=== PATIENT | female | born 1950 | race Caucasian/White ===

== ENCOUNTER → 2016-11-23 | Day surgery (SDC) | payer OTHER ==
[~2016-11-23] MED LIST: AMIODARONE HCL200 MG PO; AMLODIPINE BESY10 MG PO; ATORVASTATIN CA10 MG PO; BENAZEPRIL HCL40 MG PO; DYAZIDE 37.5/251 CAP PO; ELIQUIS5 MG PO; FERROUS SULFAT325 MG PO; FLOMAX0.4 M1 PO; FUROSEMIDE40 MG PO; HYDROCODON-ACE1 EAC7 PO; INSULIN; LOPRESSOR PO; NEURONTIN100 MG PO; NORCO; POTASSIUM CHLO20 ME1 PO; PRAVASTATIN SOD40 MG PO; PROTONIX PO; TRAMADOL HCL50 M1 PO; VOLTAREN75 MG PO
--- NOTE | ~2016-11-23 | OR ---
Unit #: [id number] #: [id number] Patient: SARAH CAMP [id number] [address] [place], [place] [address] [id number] O MR#: [id number] NAME: SARAH CAMP ROOM: Date of Procedure: 11/23/2016 Admission Date: 11/23/2016 Surgeon: Michael Campbell M.D. : 1950 Attending Physician: Michael Campbell M.D. Primary Care Physician: Reynaldo Cifuentes M.D. OPERATIVE REPORT PREOPERATIVE DIAGNOSES The patient has presented for colorectal cancer screening. She also has occult gastrointestinal blood loss as well as iron-deficiency anemia and an upper endoscopy and a colonoscopy is being done today. PROCEDURES PERFORMED Upper gastrointestinal endoscopy and biopsy as well as colonoscopy up to cecum with good prep and visualization. POSTOPERATIVE DIAGNOSES For upper endoscopy: The patient had mild prepyloric antral erosive gastritis. This was in the form of linear erythema and erythematous streaks in the antral area. A biopsy was obtained from the antrum for CLOtest. In addition, biopsies were also obtained from the deep descending duodenal folds to look for any evidence of partial villous atrophy or celiac disease. The examination was otherwise normal up to third part of duodenum. For colonoscopy: Small internal hemorrhoids. Otherwise, normal examination up to cecum. The quality of the prep was good. No polyps or diverticula were seen. RECOMMENDATIONS The patient will be followed up in the office in the next few weeks along with results of CLOtest and biopsies taken today. SEDATION USED MAC. DESCRIPTION OF PROCEDURE Following detailed explanation of potential risks and complications of upper endoscopy and a colonoscopy, namely perforation, bleeding, and complications related to sedation, the patient was brought to GI lab and laid in the left lateral decubitus position. Lubricated tip of the Olympus video upper endoscope was passed through the bite block into the proximal esophagus under direct vision. The entire esophageal mucosa was examined and appeared normal. Z-line was nicely demarcated, there being no esophagitis or hiatus hernia. The scope was then advanced into the gastric cavity and the latter was insufflated. Mucosa of the fundus, body, and antrum was examined. The patient was noted to have mild prepyloric antral erythema erosions indicating antral gastritis. Pylorus was intubated with visualization of the normal duodenal bulb and second Unit #: [id number] #: [id number] Patient: SARAH CAMP and third part of the duodenum. Biopsies were obtained from the deep descending duodenal folds to look for any evidence of partial villous atrophy or celiac disease. Upon withdrawal and retroflexion, incisura, cardia, and greater curve was examined and biopsy was obtained from the antrum for CLOtest. The scope was then withdrawn in the distal esophagus. The entire esophageal mucosa was examined all the way up to pharynx. No additional findings were noted. The examination table was then turned by 180 degrees and the patient positioned for a colonoscopy. A digital rectal examination was performed, which was normal. Lubricated tip of the Olympus video colonoscope was inserted through the anus and advanced under direct vision. The scope was advanced past rectosigmoid into descending colon. No diverticula were noticed in this area. The scope tip was then navigated all the way up to cecum with visualization of the ileocecal valve and the appendiceal orifice. Preparation was excellent with good visualization and photodocumentation was obtained. Successive segments of the colonic mucosa were examined upon withdrawal and appeared unremarkable. There being no polyps, mass lesions, AVMs, or diverticula. The patient did have small internal hemorrhoids seen at the anal verge on retroflexion. The scope was then withdrawn and the patient returned to recovery area. She tolerated the procedure without any postprocedure complications. Dictated by... Ca Tan/michelle TD: 11/23/2016 11:10 JOB #: [id number] OPERATIVE REPORT Page 1 of 1 X Michael Campbell MD X PROCEDURE OPERATIVE NOTE
== END | disposition home or self-care (01) ==
LOC: COPS 07:59
DX: K29.80 Duodenitis without bleeding (principal); K29.00 Acute gastritis without bleeding; D50.9 Iron deficiency anemia, unspecified; K64.8 Other hemorrhoids; E11.9 Type 2 diabetes mellitus without complications; I48.91 Unspecified atrial fibrillation; I10 Essential (primary) hypertension; K21.9 Gastro-esophageal reflux disease without esophagitis; Z87.19 Personal history of other diseases of the digestive system; Z79.01 Long term (current) use of anticoagulants; Z79.4 Long term (current) use of insulin; Z79.899 Other long term (current) drug therapy; Z90.49 Acquired absence of other specified parts of digestive tract; Z96.651 Presence of right artificial knee joint
CPT/HCPCS: 87077; 88305

== ENCOUNTER → 2017-01-30 | Outpatient (CLI) | payer OTHER ==
--- NOTE | ~2017-01-30 | ST ---
Unit #: [id number] #: [id number] Patient: SARAH CAMP [id number] [address] [place], [place] [address] [id number] O MR#: [id number] NAME: SARAH CAMP : 1950 SEX: F STUDY DATE/TIME: 01/30/2017 UNIT: [facility] ROOM: STUDY DESCRIPTION: Stress test Attending Physician: Pippa Castañeda M.D. Referring Physician: Pippa Castañeda M.D. Primary Care Physician: Reynaldo Cifuentes M.D. CARDIOLOGY REPORT REASON FOR EXAM Pre-op cardiac clearance. PROCEDURE Baseline EKG shows sinus bradycardia, rate of 58 beats per minute. Next, 0.4 mg of Lexiscan was injected per protocol, followed by Cardiolite. During the testing period, the patient did complain of "feeling funny," as well as some shortness of breath and lightheadedness. The patient's symptoms resolved in the recovery period. She denied any complaints of chest tightness or chest pressure. There were no ST or T wave changes noted during the infusion. There was no ectopy. The test was stopped secondary to protocol completion. FINDINGS 1. Negative EKG portion of Lexiscan Cardiolite. 2. No ST-T wave changes suggestive of ischemia. 3. Complaints of shortness of breath and "feeling weird," as well as some lightheadedness during the testing period. Denied any complaints of chest pressure or tightness. 4. No arrhythmias were noted. 5. Please correlate with nuclear imaging. Dictated by... Chayo Shaw A.P.R.N. for Pippa Castañeda M.D. LMW/db TD: 01/30/2017 11:47 JOB #: [id number] CARDIOLOGY REPORT Page 1 of 1 X Chayo Shaw APRN CARDIOLOGY REPORT
--- NOTE | ~2017-01-30 | TH ---
Unit #: [id number] #: [id number] Patient: SARAH CAMP [id number] [address] [address] [id number] O MR#: [id number] NAME: SARAH CAMP : 1950 SEX: F STUDY DATE/TIME: 01/30/2017 UNIT: [facility] ROOM: STUDY DESCRIPTION: Attending Physician: Pippa Castañeda M.D. Referring Physician: Pippa Castañeda M.D. Primary Care Physician: Reynaldo Cifuentes M.D. CARDIOLOGY REPORT EXAM Lexiscan Cardiolite stress test, nuclear portion. PROCEDURE Using technetium 99m labeled Cardiolite, rest and stress SPECT images were obtained. Multiple SPECT images were obtained in various views including horizontal and vertical long axis and short axis views of the left ventricle. Images were obtained by gated SPECT method. The patient was administered 11.92 mCi of Cardiolite at rest. Patient was administered 35.1 mCi of Cardiolite after Lexiscan infusion was completed. On the stress images, there was normal perfusion noted. The rest images showed normal perfusion. Comparing rest and stress images, there is no stress-induced ischemia noted. The left ventricular ejection fraction is calculated to be 62%. There is no focal wall motion abnormality seen. CONCLUSION 1. No stress-induced ischemia noted. 2. The left ventricular ejection fraction is calculated to be 62%. 3. There is no focal wall motion abnormality seen. 4. Normal Lexiscan Cardiolite stress test. Dictated by... Ca Martinez TD: 01/30/2017 16:39 JOB #: [id number] CARDIOLOGY REPORT Page 1 of 1 X Pippa Castañeda MD <ELECTRONICALLY SIGNED> 03/14/17 1524 CARDIOLOGY REPORT
== END | disposition home or self-care (01) ==
LOC: CNUC 08:38
DX: Z01.810 Encounter for preprocedural cardiovascular examination (principal); I48.0 Paroxysmal atrial fibrillation; I10 Essential (primary) hypertension
CPT/HCPCS: 78452; 93017; A9500; J2785

== ENCOUNTER → 2017-02-06 | Outpatient (CLI) | payer OTHER ==
--- NOTE | ~2017-02-06 | CR63 ---
[facility] A Service of [facility] & [facility] RADIOLOGY TEXT RESULTS PATIENT: SARAH CAMP LOCATION: [facility] : [birth year] UNIT #: [id number] AGE: [address]: Bryn Gerber MD SEX: F ORDER DR: [id number] [facility] [address] [place], [place] [address] [id number] O MR#: [id number] Acc #: [id number] NAME: SARAH CAMP : 1950 SEX: F STUDY DATE/TIME: 02/06/2017 9:02 UNIT: [facility] ROOM: STUDY DESCRIPTION: CR Chest 2 View Attending Physician: Bryn Gerber M.D. Referring Physician: Bryn Gerber M.D. Ordering Physician: Bryn Gerber M.D. Primary Care Physician: Reynaldo Cifuentes M.D. MEDICAL IMAGING REPORT This report is preliminary unless electronic signature is present EXAM Chest, 02/06/2017 HISTORY 66-year-old woman preop revision/removal right total knee arthroplasty. Infection. History of diabetes and hypertension. COMPARISON Chest, 07/05/2016 FINDINGS Two-view chest demonstrates mild stable cardiac enlargement. Hilar structures and mediastinal contours are preserved. Bilateral lungs are expanded and clear. IMPRESSION Stable cardiomegaly. No acute chest finding. Dictated by... Luis A Garcia M.D. THIS IS AN ELECTRONICALLY VERIFIED REPORT Luis A Garcia M.D. at 02/06/2017 12:55 PM Rubi TD: 02/06/2017 11:53 JOB #: [id number] MEDICAL IMAGING REPORT Page 1 of 1 COPY
--- NOTE | ~2017-02-06 | CO ---
Unit #: [id number] #: [id number] Patient: SARAH CAMP [id number] [address] [place], [place] [address] [id number] O MR#: [id number] NAME: SARAH CAMP ROOM: Age: 66 Sex: F Admission Date: 02/06/2017 : 1950 Attending Physician: Bryn Gerber M.D. Primary Care Physician: Reynaldo Cifuentes M.D. Consultation Date: 02/06/2017 CONSULTATION REPORT REASON FOR CONSULTATION Preop medical evaluation prior to removal of right total knee arthroplasty for right knee infection, scheduled by Dr. eGrber for 02/15/17. HISTORY OF PRESENT ILLNESS The patient is a 66-year-old female who presents to pre-procedural screening for the reasons indicated above. She complains of warmth, erythema, tenderness of the right knee joint and right anterior hamilton. Denies fever, chills. She was evaluated by Dr. Gerber approximately two weeks ago, per her report. According to the patient, the erythema, tenderness and warmth have increased since that visit. She denies upper chest, upper back, arm, neck, jaw pain or pressure. Denies dyspnea on exertion, shortness of air, PND, orthopnea. She does have obstructive sleep apnea and is compliant with CPAP when asleep. Denies dizziness but reports brief lightheadedness when getting up in the morning which resolved spontaneously with slow position changes. She denies palpitations. She denies history of myocardial infarction, CHF, CVA, TIA, kidney disease. She is an insulin dependent diabetic with associated peripheral neuropathy. She has no other complaints at the time of this interview today. She has been evaluated by Dr. Gerber and scheduled for the above reference procedure. PAST MEDICAL HISTORY 1. Osteoarthritis. 2. Right knee infection, status post right total knee arthroplasty performed at [facility] in 2013. Status post completion of 6-12 weeks of antibiotic therapy prescribed in June of 2016. She has not received antibiotic since that time. 3. Morbid obesity, BMI 40. 4. 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 5. Obstructive sleep apnea, compliant with CPAP when asleep. 6. Hypertension. 7. Hiatal hernia. 8. History of chronic low back pain, not established with pain management. 9. History of atrial fibrillation, on Eliquis therapy. 10. History of iron deficient anemia, on prescription strength iron supplement. 11. Status post panendoscopy with biopsy here at [place] on November 23, 2016. Upper endoscopy revealed mild prepyloric antral erosive gastritis. Biopsy from the antrum was negative for urease. Biopsies from the deep descending duodenal folds were collected and were negative for malignancy or dysplasia per anatomical pathology report dated 12/01/16. Unit #: [id number] #: [id number] Patient: SARAH CAMP 12. Possible history of sepsis associated with right knee infection in June 2016. 13. History of urinary incontinence. PAST SURGICAL HISTORY 1. Right total knee arthroplasty. 2. Cholecystectomy. The patient denies a personal and family history of complications to anesthesia. ALLERGIES Denies latex allergy. Denies medication allergies. CURRENT MEDICATIONS 1. Amiodarone HCL. Will need to clarify dose, one tab p.o. daily. 2. Eliquis 5 mg p.o. b.i.d. 3. Protonix 40 mg p.o. daily. 4. Potassium chloride 20 mEq p.o. daily. 5. Furosemide 40 mg p.o. daily. 6. Atorvastatin calcium 10 mg p.o. at bedtime. 7. Flomax 0.4 mg p.o. at bedtime. 8. Neurontin 100 mg p.o. t.i.d. 9. Lopressor 25 mg p.o. daily. 10. Hydrocodone/Acet 5/325 mg tab, one p.o. q.i.d. 11. Ferrous sulfate prescription strength, one tab p.o. b.i.d. Will need to confirm dose. SOCIAL HISTORY Denies tobacco use and ETOH use and illicit drug use. FAMILY HISTORY Mother - coronary artery disease and myocardial infarction. Sister - lung cancer. REVIEW OF SYSTEMS Denies fever, chills, nausea, vomiting, diarrhea. Right knee and right anterior hamilton erythema, tenderness, warmth and edema. A 10-point review of systems was conducted and otherwise negative except as indicated under History of Present Illness above. PHYSICAL EXAMINATION GENERAL: 66-year-old female awake, alert, in no acute distress. VITAL SIGNS: Temperature 99.1, heart rate 71, respiratory rate 16, blood pressure 159/70. Oxygen saturation 97% on room air. HEENT: Atraumatic, normocephalic. Sclerae anicteric. No discharge from eyes, ears or nares. LYMPHS: No preauricular, postauricular, tonsillar, submental, anterior, posterior, cervical adenopathy. ENDOCRINE: No thyromegaly, thyroid nodules or tenderness. RESPIRATORY: Clear to auscultation in all marcus bilaterally without wheezes, rhonchi or rales. CARDIOVASCULAR: S1, S2. Regular rate and rhythm with grade 2/6 systolic murmur best heard at second intercostal space left sternal border. GI: Bowel sounds positive x4. Soft, nontender, nondistended. EXTREMITIES: Right lower extremity 2+ edema with warmth, erythema over right knee joint with extension of erythema to mid pretibial area on the right. Unit #: [id number] #: [id number] Patient: SARAH CAMP NORFOLK MUSCULOSKELETAL: Strength 5/5 all extremities bilaterally, flexion/extension with exception of right lower extremity guarded secondary to pain with flexion and extension. NEURO: Alert and oriented x3. Speech clear. Follows instructions during examination. DIAGNOSTIC STUDIES LABORATORY: WBC 8.4, hemoglobin 8.2, hematocrit 26.2, platelets 478,000, sed rate 113. UA negative with neither microscopic nor culture indicated. Sodium 136, potassium 4.0, chloride 100, CO2 26, glucose 145, BUN 28, creatinine 0.8, calcium 9.3, AST 13, ALT 10, alkaline phos 102, bili total 0.7, total protein 7.9, albumin 3.0, PT 11.4, INR 1.1, CRP 6.4. Hemoglobin A1c pending at this time. MRSA nasal swab report pending at this time. IMAGIN-view chest x-ray report pending at this time. CARDIOVASCULAR: Lexiscan Cardiolite stress test nuclear portion report, date of study 01/30/17. Conclusion - no stress-induced ischemia. LVEF calculated to be 62%. No focal wall motion abnormality. Normal Lexiscan Cardiolite stress test. EKG portion of test - negative EKG portion of Lexiscan Cardiolite. IMPRESSION The patient is a 66-year-old female who presents to preprocedural screening for: 1. Right knee infection, status post right total knee arthroplasty. The patient's [place] Revised Cardiac Risk Index is equal to 0.4 to 1.0% which represents the patient's rate of myocardial infarction, pulmonary edema, ventricular fibrillation, primary cardiac arrest and complete heart block. The patient has been evaluated and has been given preoperative cardiac clearance by Dr. Castañeda. This has been discussed with the patient and her who is present today in detail and patient wishes to proceed with surgery as scheduled at this time. 2. Morbid obesity, BMI 40. Weight loss to optimum BMI is recommended. 3. Insulin dependent diabetes mellitus. Please note - the patient states she only takes insulin at home based on blood sugars. Will discontinue home insulin regimen and monitor patient with Accu-Cheks. Will monitor oral intake postoperatively. Place patient on constant carbohydrate diet and low dose sliding scale insulin and adjust accordingly to blood sugars. 4. Obstructive sleep apnea, compliant with CPAP. Patient has been advised to bring her CPAP from home for use on home settings postoperatively when asleep. 5. Hypertension. Patient is to continue current dose of beta harinder and other antihypertensive medications. Will follow blood pressure trends postoperatively and adjust medications accordingly. 6. Hiatal hernia. Recommend head of the bed be elevated 30 to 45 degrees at all times postoperatively. 7. Osteoarthritis. 8. History of neuropathy. 9. History of low back pain. The patient is not established with pain Unit #: [id number] #: [id number] Patient: SARAH CAMP management. She is stable today. 10. History of atrial fibrillation, on chronic Eliquis therapy. Will place the patient on telemetry postoperatively. Perioperative anticoagulation management including discontinuation of patient's Coumadin dose before surgery will be per order of Dr. Gerber. 11. History of iron deficiency anemia, on iron supplement, status post negative panendoscopy, negative for malignancy. Dr. Gerber will be informed of the patient's hemoglobin. Further recommendations in this regard from him are pending at this time. 12. History of sepsis in June 2016 secondary to right knee infection per patient history. There are no signs or symptoms of SIRS or sepsis at this time. I have given an order for the preoperative nurse, Laurence Peraza, to call Dr. Gerber's office and schedule an appointment for the patient to be seen by him as soon as possible for re-evaluation of the right lower extremity in the event he feels the surgery needs to be performed sooner than the scheduled date. Laurence will inform the patient of the same. Thank you for allowing us to participate in the care of this patient. Will gladly follow her for postop medical management pending order of Dr. Gerber and further recommendations from Dr. Gerber regarding right lower extremity and the surgery date. Dictated by... Faith Comer A.P.R.N. for Ca Sales/viktoriya TD: 02/06/2017 12:16 JOB #: [id number] CONSULTATION REPORT Page 1 of 1 X Faith Comer COMPUTER VIDEO GAME DESIGNER X CONSULTATION REPORT
[2017-02-06 08:21] LABS: HEMATOCRIT 26.2 % (35.0-45.0); HEMOGLOBIN 8.2 gm/dL (12.0-16.0); MEAN CELL VOLUME 73.6 FL (83-96); MEAN CORPUSCULAR HEMOGLOBIN 23.1 PG (28-34); MEAN CORPUSCULAR HGB CONC 31.4 g/dL (30-36); MEAN PLATELET VOLUME 7.6 FL (6.5-11.5); RED BLOOD COUNT 3.56 X10e (3.90-5.30); RED CELL DISTRIBUTION WIDTH 18.4 % (11.0-15.5); WHITE BLOOD COUNT 8.4 X10e3 (4.0-10.5)
[2017-02-06 08:32] LABS: INR 1.1; PROTHROMBIN TIME (PATIENT) 11.4 SECONDS (10.0-11.7)
[2017-02-06 08:57] LABS: BILIRUBIN,TOTAL 0.7 mg/dL (0.2-2.0); CALCIUM SERUM 9.3 mg/dL (8.4-10.2); CREATININE SERUM 0.8 mg/dL (0.6-1.4); GLOM FILT RATE Estimated 75.8 mL/min (>60); PROTEIN TOTAL SERUM 7.9 g/dL (6.0-8.3)
[2017-02-06 10:05] LABS: URINE APPEARANCE CLEAR; URINE BILIRUBIN NEG (NEG); URINE BLOOD NEG (NEG); URINE COLOR YELLOW; URINE GLUCOSE NEG (NEG); URINE KETONE NEG (NEG); URINE LEUKOCYTE ESTERASE NEG (NEG); URINE NITRATE NEG (NEG); URINE PROTEIN NEG (NEG); URINE SPECIFIC GRAVITY 1.021 (1.003-1.035)
[2017-02-06 10:07] LABS: CULTURE INDICATED? NO
== END | disposition home or self-care (01) ==
LOC: CAMB 07:36
PROVIDERS: Orthopaedic Surgery
DX: Z01.818 Encounter for other preprocedural examination (principal); M00.9 Pyogenic arthritis, unspecified; I51.7 Cardiomegaly
CPT/HCPCS: 36415; 71020; 80053; 81003; 83036; 85027; 85610; 85652; 86140; 86850; 86900; 86901; 87070

== ENCOUNTER 2017-02-15 09:04 | Inpatient (IN) | payer OTHER ==
[~2017-02-15] VITALS: Ht 157.5 cm; Wt 101.5 kg
--- NOTE | ~2017-02-15 | XA166 ---
[facility] A Service of [facility] & [facility] RADIOLOGY TEXT RESULTS PATIENT: SARAH CAMP LOCATION: [facility] 461-01 : [birth year] UNIT #: [id number] AGE: [address]: Bryn Gerber MD SEX: F ORDER DR: [id number] [facility] [address] [place], [place] [address] [id number] MR#: [id number] Acc #: [id number] NAME: SARAH CAMP : 1950 SEX: F STUDY DATE/TIME: 02/15/2017 15:01 UNIT: [facility] ROOM: 1 STUDY DESCRIPTION: XA PICC Line Placement WO Port Attending Physician: Bryn Gerber M.D. Ordering Physician: Bryn Gerber M.D. Primary Care Physician: Reynaldo Cifuentes M.D. MEDICAL IMAGING REPORT This report is preliminary unless electronic signature is present EXAM PICC line placement, 02/15/2017 HISTORY IV access needed. PRE-PROCEDURE The procedure was explained to the patient and/or patient sales representative sales manager including risks, benefits, potential complications and potential for alternative forms of treatment. Informed consent was obtained, and prior to initiating the procedure a formal timeout procedure was performed. PROCEDURE Using full standard sterile barrier technique, including caps, gowns, gloves, masks, as well as sterile skin preparation and standard sterile draping, the right arm was prepped and draped in the usual fashion, and real-time sterile ultrasound guidance was used to localize an arm vein and to confirm vessel patency. A hard copy ultrasound image was recorded. After local anesthesia with 1% Xylocaine, the vein was punctured using real-time sterile ultrasound guidance, and an 0.018 guidewire was advanced into the superior vena cava, using fluoroscopic guidance. A 5-Bulgarian, dual-lumen PICC was then measured and deployed with the tip positioned in the superior vena cava. The position of the line was documented with a radiographic image. The line was secured in place with an adhesive dressing and an antibiotic patch was applied. Total fluoro time was 0.4 minutes. A single fluoroscopic spot image was obtained. IMPRESSION Successful placement of a 5-Bulgarian, dual-lumen PowerPICC via the right arm under ultrasound and fluoroscopic guidance. The tip of the PICC is in good position in the superior vena cava. [facility] A Service of [facility] RADIOLOGY TEXT RESULTS PATIENT: SARAH CAMP LOCATION: [facility] 461-01 : [birth year] UNIT #: [id number] AGE: [address]: Bryn Gerber MD SEX: F ORDER DR: Dictated by... Roldan Perez M.D. THIS IS AN ELECTRONICALLY VERIFIED REPORT Roldan Perez M.D. at 02/18/2017 9:07 AM TEV/psc TD: 02/16/2017 13:40 JOB #: [id number] MEDICAL IMAGING REPORT Page 1 of 1 COPY
--- NOTE | ~2017-02-15 | CR172 ---
[facility] A Service of [facility] & [facility] RADIOLOGY TEXT RESULTS PATIENT: SARAH CAMP LOCATION: [facility] 461-01 : [birth year] UNIT #: [id number] AGE: [address]: Bryn Gerber MD SEX: F ORDER DR: [id number] [facility] [address] [place], [place] [address] [id number] I MR#: [id number] Acc #: [id number] NAME: SARAH CAMP : 1950 SEX: F STUDY DATE/TIME: 02/18/2017 8:33 UNIT: [facility] ROOM: [facility] STUDY DESCRIPTION: CR Knee 3 Views Lt Attending Physician: Bryn Gerber M.D. Ordering Physician: Maynor Gentile Primary Care Physician: Reynaldo Cifuentes M.D. MEDICAL IMAGING REPORT This report is preliminary unless electronic signature is present EXAM Left knee 3 views. INDICATIONS Left knee pain for 3-4 months. COMPARISON Comparison with 07/05/2016. FINDINGS There are marked tricompartmental degenerative changes of the knee. There is severe lateral compartment narrowing. No evidence for fracture or dislocation. No joint effusion. IMPRESSION Degenerative changes as described. Dictated by... Aiden Claudio M.D. THIS IS AN ELECTRONICALLY VERIFIED REPORT Aiden Claudio M.D. at 02/19/2017 6:59 AM ARS/gz TD: 02/18/2017 13:57 JOB #: [id number] MEDICAL IMAGING REPORT Page 1 of 1 COPY
--- NOTE | ~2017-02-15 | CR127 ---
[facility] A Service of [facility] RADIOLOGY TEXT RESULTS PATIENT: SARAH CAMP LOCATION: [facility] 461-01 : 48 UNIT #: [id number] AGE: [address]: Bryn Gerber MD SEX: F ORDER DR: [id number] [facility] [address] [place], [place] [address] [id number] MR#: [id number] Acc #: [id number] NAME: SARAH CAMP : 1950 SEX: F STUDY DATE/TIME: 02/17/2017 12:36 UNIT: [facility] ROOM: [facility] STUDY DESCRIPTION: CR Foot Complete Min 3 View Rt Attending Physician: Bryn Gerber M.D. Ordering Physician: Lincoln Diop M.D. Primary Care Physician: Reynaldo Cifuentes M.D. MEDICAL IMAGING REPORT This report is preliminary unless electronic signature is present EXAM Right foot, 3 views COMPARISON None. INDICATION 66-year-old female with worsening right foot pain and swelling since June 2016. FINDINGS The exam is limited by diffuse osteopenia. There is osteophyte formation at the talar dome anteriorly and posteriorly. There is moderate enthesophyte formation at the plantar fascial attachment of the calcaneus with severe enthesophyte formation at the Achilles attachment. Bones are anatomically aligned. Evaluation for subtle acute fracture is limited by osteopenia. There is an os naviculare, a normal anatomic variant. No evidence of acute fracture. IMPRESSION 1. Evaluation for subtle fracture is limited by osteopenia. There is no evidence of acute fracture. Bones are anatomically aligned. 2. There is soft tissue swelling at the dorsum of the foot diffusely. No radiopaque foreign body. No evidence of osteomyelitis. 3. Degenerative changes of the hindfoot as described in the body of the report. STAT * RESULT Dictated by... Jackson Banks M.D. [facility] A Service of [facility] RADIOLOGY TEXT RESULTS PATIENT: SARAH CAMP LOCATION: [place] [address] : [birth year] UNIT #: [id number] AGE: [address]: Bryn Gerber MD SEX: F ORDER DR: THIS IS AN ELECTRONICALLY VERIFIED REPORT Jackson Banks M.D. at 02/20/2017 9:23 AM Wild TD: 02/18/2017 08:06 JOB #: [id number] MEDICAL IMAGING REPORT Page 1 of 1 COPY
--- NOTE | ~2017-02-15 | CR21 ---
[facility] A Service of [facility] RADIOLOGY TEXT RESULTS PATIENT: SARAH CAMP LOCATION: [facility] 461-01 : 48 UNIT #: [id number] AGE: [address]: Bryn Gerber MD SEX: F ORDER DR: [id number] [facility] [address] [place], [place] [address] [id number] I MR#: [id number] Acc #: [id number] NAME: SARAH CAMP : 1950 SEX: F STUDY DATE/TIME: 02/17/2017 12:34 UNIT: [facility] ROOM: [facility] STUDY DESCRIPTION: CR Ankle Min 3 Views Rt Attending Physician: Bryn Gerber M.D. Ordering Physician: Lincoln Diop M.D. Primary Care Physician: Reynaldo Cifuentes M.D. MEDICAL IMAGING REPORT This report is preliminary unless electronic signature is present EXAM Right ankle, 3 views COMPARISON Three views right foot on the same day. INDICATION 66-year-old female with right ankle pain and swelling, gradually worsening since June 2016. FINDINGS The exam is significantly limited by diffuse osteopenia. There is a very large enthesophyte of the Achilles attachment of the calcaneus with moderate enthesophyte at the plantar fascial attachment. No evidence of acute fracture or dislocation at the right ankle. Arterial calcifications anterior to the ankle. IMPRESSION No evidence of acute fracture or dislocation at the right ankle. Not mentioned specifically in the body of the report, there is osteophyte formation of the talar dome. There is severe calcaneal enthesopathy. STAT * RESULT Dictated by... Jackson Banks M.D. THIS IS AN ELECTRONICALLY VERIFIED REPORT Jackson Banks M.D. at 02/20/2017 9:23 AM MARCO A/bandar TD: 02/18/2017 07:59 [facility] A Service of [facility] RADIOLOGY TEXT RESULTS PATIENT: SARAH CAMP LOCATION: [facility] 461-01 : 48 UNIT #: [id number] AGE: [address]: Bryn Gerber MD SEX: F ORDER DR: JOB #: [id number] MEDICAL IMAGING REPORT Page 1 of 1 COPY
--- NOTE | ~2017-02-15 | OR ---
Unit #: [id number] #: [id number] Patient: SARAH CAMP [id number] [address] [place], [place] [address] [id number] I MR#: [id number] NAME: SARAH CAMP ROOM: 461 Date of Procedure: 02/15/2017 Admission Date: 02/15/2017 Surgeon: Bryn Gerber M.D. : 1950 Attending Physician: Bryn Gerber M.D. Primary Care Physician: Reynaldo Cifuentes M.D. OPERATIVE REPORT PREOPERATIVE DIAGNOSIS Infected right total knee. POSTOPERATIVE DIAGNOSIS Infected right total knee. PROCEDURES PERFORMED Removal of knee and placement of antibiotic spacer. 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 ANESTHESIA General. DESCRIPTION OF PROCEDURE The patient was brought to the holding room, given 2 g of Kefzol and 1.5 g of vancomycin. This will be continued postop. The patient then had a general anesthetic administered. Tourniquet was placed around the right leg. Right leg was prepped and draped in a sterile fashion. The previous skin incision was used. The subcutaneous dissected away and a medial arthrotomy performed. Purulent material was encountered. This was cultured, both fluid and tissue. We then removed the polyethylene from the previous tibial tray, loosened the femur using a 0.5-inch straight osteotome, and once the femur was removed we subluxed the tibia anteriorly and this was removed in a similar manner. Once all the hardware was out, the knee was debrided completely including the suprapatellar pouch and the medial and lateral gutters, it was then soaked in Betadine and then irrigated with 3000 mL of bacitracin. At the same time, we prepared a mold using the Biomet size 60 mediolateral 43 AP mold. Once this was made, another package of cement with 2 g of vancomycin in the cement was mixed and the femur was cemented into place. We made the tibial mold freehand and it was inserted after the femoral spacer was cemented into place. The patient then had the tourniquet released. Hemostasis was obtained. A drain was positioned and the patient's wound was closed over the drain with 0 Vicryl in the arthrotomy, 0 and 2-0 Vicryl in the subcutaneous, and donavon in the skin. Sterile dressing was applied and the patient's general anesthetic was reversed. Blood loss was about 200 to 300 mL. Dictated by... Unit #: [id number] #: [id number] Patient: SARAH CAMP Ca Parra/michelle TD: 02/18/2017 15:19 JOB #: [id number] OPERATIVE REPORT Page 1 of 1 X Bryn Gerber MD X PROCEDURE OPERATIVE NOTE
--- NOTE | ~2017-02-15 | BMI ---
[facility] Nutrition Therapy DATE: 02/16/17 Patient: SARAH CAMP Physician: DEXTER Address: [address] [address] [facility] [facility] [facility] Room/Bed: [address] [place] [address], Zip: [place] [address] Admit Date: 02/15/17 Date of : [birth year] Height: 5 2 Weight: 223 101.5 HIGH BMI NOTE: DX: PATIENT ADMITTED FOR INFECTED R-TOTAL KNEE ANTHROPOMETRICS: HT: 62", WT: 223#, BMI: 40.8 DIET: CCD RECOMMENDATIONS: RECOMMEND ADDING HEART HEALTHY TO CURRENT DIET ORDER TO PROMOTE A STEADY WEIGHT LOSS TOWARDS A HEALTHY BMI OF 19-25 Respectfully, CHADD OSEGUERA RD, LD [employer] and [facility] cc: client file
--- NOTE | ~2017-02-15 | DS ---
Unit #: [id number] #: [id number] Patient: SARAH CAMP [id number] [place] [address] [facility]. [place], [place] [address] [id number] I MR#: [id number] NAME: SARAH CAMP ROOM: 46 Age: 66 Sex: F Admission Date: 02/15/2017 : 1950 Discharge Date: 02/18/2017 Attending Physician: Bryn Gerber M.D. Primary Care Physician: Reynaldo Cifuentes M.D. DISCHARGE SUMMARY ADMITTING DIAGNOSIS Right knee pain with infection. PROCEDURES Left total knee removal with antibiotic spacer. HOSPITAL COURSE The patient was admitted to [facility] with a history of infection of her right knee. The patient has undergone the above procedure. The patient tolerated this well. There were no complications. Today, her temperature is 98.3, blood pressure 135/54, heart rate of 57 and regular, respirations 18. Incision is healing well and neurovascular exam is intact. She had 2+ pulses in the lower extremity. The patient did have x-rays of her right foot at her request which did not show any acute fracture. The patient does complain of left knee pain. We will get an x-ray of her knee before she goes to rehab today. DISPOSITION To rehab with six weeks of antibiotics. PERTINENT LABS PT was 18.1, INR was 1.7, WBC 8.5, hemoglobin 8.8. Cultures of her right knee shows Staph aureus. MEDICATIONS Per Med Rec list. She will be on her regular home medications with the addition of: 1. Keflex IV per ID. 2. Coumadin for DVT prophylaxis. FOLLOWUP INSTRUCTIONS Patient will be toe touch weight bearing on her right lower extremity. Patient will need PT/INRs done on 02/20 and then every Saturday and thereafter. Call the results to [phone] or fax to [phone], attention Jun. The patient will need skin donavon removed 02/28/2017 and Steri-Strips placed for one week. The patient should wear RONY hose during the day and off at night. The patient should not shower until the day after donavon removed. The patient will follow up with Dr. Gerber in six weeks. Unit #: [id number] #: [id number] Patient: SARAH CAMP Dictated by... Milton Wallis P.A.-C- Ca Leggett/viktoriya TD: 02/18/2017 09:09 JOB #: [id number] DISCHARGE SUMMARY Page 1 of 1 X X DISCHARGE SUMMARY
--- NOTE | ~2017-02-15 | EKG ---
PATIENT: SARAH CAMP UNIT #: [id number] Ventricular Rate: 71 BPM Atrial Rate: 71 BPM P-R Interval: 176 ms QRS Duration: 88 ms Q-T Interval: 412 ms QTC Calculation(Bezet): 447 ms P [place]: 56 degrees Calculated R [place]: -8 degrees Calculated T [place]: 26 degrees Diagnosis Line: Normal sinus rhythm Diagnosis Line: Normal ECG Diagnosis Line: When compared with ECG of 06-JUL-2016 05:30, Diagnosis Line: QT has shortened Diagnosis Line: Confirmed by BETTYE TOBIN MD ([id number]) on 02/15/2017 Diagnosis Line: 5:30:01 PM INTERPRETING MD: CRISTA COLLINS
[~2017-02-15 09:04] MED LIST changes: -FERROUS SULFAT325 MG PO; -INSULIN
[2017-02-15] MEDS ORDERED: FERROUS SULFAT325 MG PO (09:40)
[2017-02-15] MEDS ORDERED: INSULIN (10:35)
[2017-02-15 10:41] LABS: BASOPHIL# 0.1 X10e3 (0-0.3); BASOPHIL% 0.8 % (0-2.5); EOSINOPHIL% 0.5 % (0.0-7.0); HEMATOCRIT 27.7 % (35.0-45.0); HEMOGLOBIN 8.5 gm/dL (12.0-16.0); LYMPHOCYTE# 1.4 X10e3 (1.0-3.5); LYMPHOCYTE% 17.2 % (17.0-45.0); MEAN CELL VOLUME 73.5 FL (83-96); MEAN CORPUSCULAR HEMOGLOBIN 22.5 PG (28-34); MEAN CORPUSCULAR HGB CONC 30.6 g/dL (30-36); MEAN PLATELET VOLUME 7.6 FL (6.5-11.5); MONOCYTE# 0.8 X10e3 (0-1.0); MONOCYTE% 10.5 % (3.0-12.0); NEUTROPHIL# 5.6 X10e3 (1.5-7.1); PLATELET COUNT 551 X10e3 (140-420); RED BLOOD COUNT 3.77 X10e (3.90-5.30); RED CELL DISTRIBUTION WIDTH 18.1 % (11.0-15.5); WHITE BLOOD COUNT 7.9 X10e3 (4.0-10.5)
[2017-02-15 10:42] LABS: DIFF IND NO
[2017-02-15 10:53] LABS: INR 1.1; PROTHROMBIN TIME (PATIENT) 11.7 SECONDS (10.0-11.7)
[2017-02-16 03:45] LABS: HEMATOCRIT 23.1 % (35.0-45.0); HEMOGLOBIN 7.1 gm/dL (12.0-16.0)
[2017-02-16 03:47] LABS: INR 1.2; PROTHROMBIN TIME (PATIENT) 13.5 SECONDS (10.0-11.7)
[2017-02-16 04:37] LABS: CALCIUM SERUM 8.9 mg/dL (8.4-10.2); CREATININE SERUM 0.6 mg/dL (0.6-1.4); GLOM FILT RATE Estimated 93.7 mL/min (>60); MAGNESIUM 1.7 mg/dL (1.6-3.0); POTASSIUM 4.5 mmol/L (3.5-5.1)
[2017-02-17 03:46] LABS: HEMATOCRIT 27.5 % (35.0-45.0); HEMOGLOBIN 8.7 gm/dL (12.0-16.0)
[2017-02-17 04:02] LABS: INR 1.7; PROTHROMBIN TIME (PATIENT) 18.5 SECONDS (10.0-11.7)
[2017-02-17 04:04] LABS: BUN/CREATININE RATIO 21.25; CALCIUM SERUM 8.6 mg/dL (8.4-10.2); CREATININE SERUM 0.8 mg/dL (0.6-1.4); GLOM FILT RATE Estimated 75.8 mL/min (>60); POTASSIUM 4.3 mmol/L (3.5-5.1)
[2017-02-17 13:40] LABS: HEMATOCRIT 29.5 % (35.0-45.0); HEMOGLOBIN 9.5 gm/dL (12.0-16.0); MEAN CELL VOLUME 75.4 FL (83-96); MEAN CORPUSCULAR HEMOGLOBIN 24.2 PG (28-34); MEAN CORPUSCULAR HGB CONC 32.1 g/dL (30-36); MEAN PLATELET VOLUME 7.4 FL (6.5-11.5); RED BLOOD COUNT 3.92 X10e (3.90-5.30); RED CELL DISTRIBUTION WIDTH 17.8 % (11.0-15.5); WHITE BLOOD COUNT 8.5 X10e3 (4.0-10.5)
[2017-02-18 03:31] LABS: HEMATOCRIT 28.7 % (35.0-45.0); HEMOGLOBIN 8.9 gm/dL (12.0-16.0); MEAN CELL VOLUME 76.4 FL (83-96); MEAN CORPUSCULAR HEMOGLOBIN 23.6 PG (28-34); MEAN CORPUSCULAR HGB CONC 30.9 g/dL (30-36); MEAN PLATELET VOLUME 7.6 FL (6.5-11.5); RED BLOOD COUNT 3.76 X10e (3.90-5.30); RED CELL DISTRIBUTION WIDTH 18.2 % (11.0-15.5); WHITE BLOOD COUNT 8.5 X10e3 (4.0-10.5)
[2017-02-18 03:44] LABS: INR 1.7; PROTHROMBIN TIME (PATIENT) 18.1 SECONDS (10.0-11.7)
[2017-02-18 08:26] LABS: INR 1.8; PROTHROMBIN TIME (PATIENT) 19.9 SECONDS (10.0-11.7)
== END 2017-02-18 17:45 | DRG 464 ==
LOC: CSUR 09:04 → CPACUOF 10:26 → CSUR 11:00 → C4C 11:00 → CSUR 14:00 → C4C 15:40 → CPACUOF 15:40 → C4C 02-18 17:45
PROVIDERS: Internal Medicine Endocrinology, Diabetes & Metabolism; Nurse Practitioner; Orthopaedic Surgery
PROC: 0SPC0JZ Removal of Synthetic Substitute from Right Knee Joint, Open Approach (ICD-10-PCS; 2017-02-15)
PROC: 0SHC08Z Insertion of Spacer into Right Knee Joint, Open Approach (ICD-10-PCS; 2017-02-15)
PROC: 02HV33Z Insertion of Infusion Device into Superior Vena Cava, Percutaneous Approach (ICD-10-PCS; 2017-02-15)
PROC: B518YZA Fluoroscopy of Superior Vena Cava using Other Contrast, Guidance (ICD-10-PCS; 2017-02-15)
PROC: B548ZZA Ultrasonography of Superior Vena Cava, Guidance (ICD-10-PCS; 2017-02-15)
PROC: 30233N1 Transfusion of Nonautologous Red Blood Cells into Peripheral Vein, Percutaneous Approach (ICD-10-PCS; principal; 2017-02-16)
DX: T84.53XA Infection and inflammatory reaction due to internal right knee prosthesis, initial encounter (principal); Z68.41 Body mass index [BMI] 40.0-44.9, adult; E11.42 Type 2 diabetes mellitus with diabetic polyneuropathy; I48.91 Unspecified atrial fibrillation; I10 Essential (primary) hypertension; K44.9 Diaphragmatic hernia without obstruction or gangrene; Z80.9 Family history of malignant neoplasm, unspecified; E66.01 Morbid (severe) obesity due to excess calories; R32 Unspecified urinary incontinence; D50.9 Iron deficiency anemia, unspecified; B95.62 Methicillin resistant Staphylococcus aureus infection as the cause of diseases classified elsewhere
CPT/HCPCS: 36430; 73562; 73610; 73630; 76937; 77001; 80048; 80202; 82947; 83735; 85014; 85018; 85025; 85027; 85610; 86850; 86900; 86901; 86923; 87070; 87075; 87077; 87116; 87186; 87205; 87206; 93005; 94010; 94760; 97110; 97116; 97162; 97530; C1751; G8978-GP; G8979-GP; G8980-GP; J0171; J0690; J0735; J1170; J1650; J1885; J2250; J2405; J2795; J3010; J3370; P9016